=== PATIENT | female | born 1990 | race Two or more races ===

== ENCOUNTER 2021-08-07 20:48 | Emergency (ER) | payer OTHER ==
[~2021-08-07] VITALS: Ht 165.1 cm; Wt 56.7 kg
[2021-08-07] MEDS ORDERED: NORFLEX100MG PO (22:28)
== END 2021-08-07 22:41 | disposition home or self-care (01) ==
LOC: ER 20:48
DX: R25.2 Cramp and spasm (principal)